=== PATIENT | female | born 1990 | race Caucasian/White ===

== ENCOUNTER 2020-07-28 05:32 | Inpatient (IN) ==
[2020-07-28] MEDS ORDERED: Famotidine 20 MG/2 ML VIAL IVP PRN (05:46)
[2020-07-28] MEDS ORDERED: Azithromycin 500 MG in 0.9 % Sodium Chloride 250 ML IVPB ONE (05:46)
[2020-07-28] MEDS ORDERED: Naloxone 0.4 MG/ML INJ IVP PRN (05:46)
[2020-07-28] MEDS ORDERED: Metoclopramide 10 MG/2 ML VIAL IVP PRN ×2 (05:46→11:10)
[2020-07-28] MEDS ORDERED: CeFAZolin 2,000 MG/50 ML BAG IVPB ONE (05:49)
[2020-07-28] MEDS ORDERED: Ringers Solution, Lactated 1,000 ML IVC ONE (05:49)
[2020-07-28] MEDS ORDERED: Ringers Solution, Lactated 1,000 ML IVC SCH (06:00)
[2020-07-28 06:21] LABS: Basophils % 0.3 %; Eosinophils # 0.2 K/mcL (0.0-0.6); Eosinophils % 1.2 %; Hematocrit 34.8 % (35.3-44.9); Hemoglobin 11.5 g/dL (11.5-15.4); Immature Granulocytes % 0.7 % (0-4); Lymphocytes # 2.5 K/mcL (0.6-4.6); Lymphocytes % 16.9 %; Mean Corpuscular Hemoglobin 30.1 pg (28.0-33.3); Mean Corpuscular Volume 91.1 fL (83.0-100.0); Mean Platelet Volume 11.5 fL (9.4-12.4); Monocytes # 0.5 K/mcL (0.0-1.3); Monocytes % 3.5 %; Neutrophils # 11.4 K/mcL (1.6-8.9); Platelet Count 252 K/mcL (140-400); Red Blood Count 3.82 M/mcL (3.82-4.97); Red Cell Distribution Width 12.9 % (11.5-14.5); Segmented Neutrophils % 77.4 %; White Blood Count 14.8 K/mcL (4.3-11.1)
[2020-07-28 06:23] LABS: Amphetamine Screen,Urine Negative ng/mL (Cutoff=1000); Barbiturate Screen,Urine Negative ng/mL (Cutoff=200)
[2020-07-28 06:24] LABS: Benzodiazepines Screen,Urine Negative ng/mL (Cutoff=300); Cannabinoid Screen,Urine Negative ng/mL (Cutoff = 50); Cocaine Screen,Urine Negative ng/mL (Cutoff= 300); Opiate Screen,Urine Negative ng/mL (Cutoff=300); Phencyclidine Screen,Urine Negative ng/mL (Cutoff=25)
[2020-07-28] MEDS ORDERED: Oxytocin 20 units/ LR 1000 mL 40 UNIT/2,000 ML BAG IVC ONE (07:41)
[2020-07-28] MEDS ORDERED: *HR* OxyCODONE Immed Rel 5 MG TABLET PO PRN (08:25)
[2020-07-28] MEDS ORDERED: Ondansetron 4 MG/2 ML VIAL IVP PRN ×2 (08:25→11:10)
[2020-07-28] MEDS ORDERED: Simethicone 80 MG TAB.CHEW PO PRN (11:10)
[2020-07-28] MEDS ORDERED: Sennosides 8.6 MG TABLET PO PRN (11:10)
[2020-07-28] MEDS ORDERED: Acetaminophen 325 MG TABLET PO PRN (11:10)
[2020-07-28] MEDS ORDERED: Rho Immune Globulin 1,500 UNIT SYRINGE IM ONE (11:10)
[2020-07-28] MEDS ORDERED: *HR* OxyCODONE/APAP 5/325 TABLET PO PRN (11:10)
[2020-07-28] MEDS ORDERED: Oxytocin 20 units/ LR 1000 mL 20 UNIT/1,000 ML BAG IVC SCH (11:10)
[2020-07-28] MEDS: metroNIDAZOLE 500 MG TABLET PO SCH ×2 (15:01→19:45)
[2020-07-28] MEDS: cephALEXin 500 MG CAPSULE PO SCH ×2 (15:01→19:45)
[2020-07-28] MEDS: Ibuprofen 600 MG TABLET PO SCH (22:40)
[2020-07-29 06:47] LABS: Basophils # 0.1 K/mcL (0.0-0.2); Basophils % 0.5 %; Eosinophils # 0.2 K/mcL (0.0-0.6); Eosinophils % 1.7 %; Hematocrit 29.4 % (35.3-44.9); Immature Granulocytes % 0.6 % (0-4); Lymphocytes # 1.9 K/mcL (0.6-4.6); Lymphocytes % 15.3 %; Mean Corpuscular Hemoglobin 30.7 pg (28.0-33.3); Mean Platelet Volume 11.2 fL (9.4-12.4); Monocytes # 0.5 K/mcL (0.0-1.3); Monocytes % 4.2 %; Neutrophils # 9.7 K/mcL (1.6-8.9); Platelet Count 187 K/mcL (140-400); Red Blood Count 3.16 M/mcL (3.82-4.97); Red Cell Distribution Width 12.7 % (11.5-14.5); Segmented Neutrophils % 77.7 %; White Blood Count 12.5 K/mcL (4.3-11.1)
[2020-07-29 06:49] LABS: Hemoglobin 9.7 g/dL (11.5-15.4)
[2020-07-29 07:47] VITALS: BP 116/80
[2020-07-29] MEDS ORDERED: NON-FORMULARY MEDICATION 1 EACH EACH (Prenatal Tablet 1 TAB) PO SCH (09:00)
[2020-07-29] MEDS ORDERED: Prenatal Vit/FA 1 EACH TABLET PO SCH (09:00)
[2020-07-29] MEDS: cephALEXin 500 MG CAPSULE PO SCH ×2 (09:43→15:17)
[2020-07-29] MEDS: metroNIDAZOLE 500 MG TABLET PO SCH ×2 (09:43→15:16)
[2020-07-29] MEDS: Ibuprofen 600 MG TABLET PO SCH (12:15)
== END 2020-07-29 17:40 | disposition home or self-care (01) | DRG 788 ==
LOC: 1NENULAB 05:32 → 1NENUOBS 16:52
PROVIDERS: ADMIT Obstetrics & Gynecology; ATTEND Obstetrics & Gynecology